=== PATIENT | female | born 2000 | race Caucasian/White ===

== ENCOUNTER 2018-08-03 12:07 | Emergency (ER) | payer OTHER ==
[2018-08-03] MEDS ORDERED: NS 1,000 ML IV ONE (12:20)
--- NOTE | 2018-08-03 12:21 | EDPHY ---
H & P Time Seen by Provider: 08/03/18 12:20 HPI/ROS: Chief complaint. Syncope HPI. Patient is to 17-year-old female here by ambulance after having 2 syncopal episodes today. She has been sick since yesterday. This morning she was meeting friends for breakfast and was getting lightheaded and dizzy and somewhat thirsty. She got up to go get a drink and had a passing out episode. She tried to get up and had another passing out episode. She did strike her elbow but not did not hit her head. No neck pain. She did not have chest discomfort or trouble breathing. No abdominal pain. She has had chills and fever since yesterday. She has sore throat. History of strep and it feels the same. No known exposures. ROS 10 systems were reviewed and negative with the exception of the elements mentioned in the history of present illness Past Medical/Surgical History: Healthy Social History: Single, nonsmoker, no alcohol Smoking Status: Never smoked Physical Exam: General Appearance: Alert well-developed female mild distress vital signs are stable Eyes: Pupils equal and round no pallor or injection. ENT, tympanic membranes are normal. Pharynx injected with exudate. Mucous membranes moist Respiratory: There are no retractions, lungs are clear to auscultation. Cardiovascular: Regular rate and rhythm. Gastrointestinal: Abdomen is soft and nontender, no masses, bowel sounds normal. Neurological: Awake and alert, sensory and motor exams grossly normal. Skin: Warm and dry, no rashes. Musculoskeletal: Neck is supple nontender. Extremities symmetrical, full range of motion. Psychiatric: Patient is oriented X 3, there is no agitation. Constitutional: Initial Vital Signs Temperature (C) 36.4 C 08/03/18 12:07 Heart Rate 79 08/03/18 12:07 Respiratory Rate 16 08/03/18 12:07 Blood Pressure 115/69 08/03/18 12:07 O2 Sat (%) 100 08/03/18 12:07 O2 Delivery Mode Room Air Allergies/Adverse Reactions: No Known Allergies Allergy (Unverified 08/03/18 12:13) Home Medications: Medication Instructions Recorded Penicillin V Potassium [Penicillin 500 mg PO BID #14 tab 08/03/18 VK] Sertraline HCl 08/03/18 Zoloft 50mg (*) 08/03/18 Medical Decision Making - Diagnostics EKG Interpretation: EKG interpreted by me shows normal sinus rhythm short AR interval at 1:02 a.m.. Normal axis. No significant ST elevation or depression. No arrhythmia. Rate 73 Procedures: IV normal saline monitor Strep screen which is negative Decadron orally ED Course/Re-evaluation: Re-evaluation at 1:40 p.m. Patient is stable. She feels much better. She and I discussed laboratory an EKG evaluation. We discussed treatment plan including recommendation for follow-up with Cardiology because of the short AR interval and syncope. She expresses understanding and agreement Differential Diagnosis: Syncope likely due to dehydration and illness. Patient has swollen tonsils with pus. Negative strep and mono. This appears to be still infectious disease and bacterial versus viral illness. Short AR interval and referral to Cardiology. - Data Points Laboratory Results: Laboratory Results 08/03/18 12:23 08/03/18 12:23 08/03/18 08/03/18 08/03/18 Unknown 12:38 12:27 WBC RBC Hgb Hct MCV MCH MCHC RDW Plt Count MPV Neut % (Auto) Lymph % (Auto) Pratt % (Auto) Eos % (Auto) Baso % (Auto) Nucleat RBC Rel Count Absolute Neuts (auto) Absolute Lymphs (auto) Absolute Monos (auto) Absolute Eos (auto) Absolute Basos (auto) Absolute Nucleated RBC Immature Gran % Immature Gran # Sodium Potassium Chloride Carbon Dioxide Anion Gap BUN Creatinine Estimated GFR Glucose Calcium POC Troponin I 0.02 ng/mL ng/mL (0.00-0.08) Monoscreen Group A Strep Screen NEGATIVE (NEGATIVE) Group A Strep DNA Pending 08/03/18 08/03/18 08/03/18 12:23 12:23 12:20 WBC 18.11 10^3/uL H 10^3/uL (3.80-9.50) RBC 4.16 10^6/uL L 10^6/uL (4.18-5.33) Hgb 13.1 g/dL g/dL (12.6-16.3) Hct 39.6 % % (38.0-47.0) MCV 95.2 fL fL (81.5-99.8) MCH 31.5 pg pg (27.9-34.1) MCHC 33.1 g/dL g/dL (32.4-36.7) RDW 13.3 % % (11.5-15.2) Plt Count 298 10^3/uL 10^3/uL (150-400) MPV 11.0 fL fL (8.7-11.7) Neut % (Auto) 72.4 % % (39.3-74.2) Lymph % (Auto) 19.7 % % (15.0-45.0) Pratt % (Auto) 7.0 % % (4.5-13.0) Eos % (Auto) 0.1 % L % (0.6-7.6) Baso % (Auto) 0.4 % % (0.3-1.7) Nucleat RBC Rel Count 0.0 % % (0.0-0.2) Absolute Neuts (auto) 13.11 10^3/uL H 10^3/uL (1.70-6.50) Absolute Lymphs (auto) 3.56 10^3/uL H 10^3/uL (1.00-3.00) Absolute Monos (auto) 1.27 10^3/uL H 10^3/uL (0.30-0.80) Absolute Eos (auto) 0.02 10^3/uL L 10^3/uL (0.03-0.40) Absolute Basos (auto) 0.07 10^3/uL 10^3/uL (0.02-0.10) Absolute Nucleated RBC 0.00 10^3/uL 10^3/uL (0-0.01) Immature Gran % 0.4 % % (0.0-1.1) Immature Gran # 0.08 10^3/uL 10^3/uL (0.00-0.10) Sodium 137 mEq/L mEq/L (135-145) Potassium 4.0 mEq/L mEq/L (3.3-5.0) Chloride 103 mEq/L mEq/L (97-110) Carbon Dioxide 22 mEq/l mEq/l (22-31) Anion Gap 12 mEq/L mEq/L (6-14) BUN 13 mg/dL mg/dL (7-23) Creatinine 0.8 mg/dL mg/dL (0.6-1.0) Estimated GFR > 60 Glucose 127 mg/dL H mg/dL (70-100) Calcium 9.3 mg/dL mg/dL (8.5-10.4) POC Troponin I Monoscreen NEGATIVE (NEGATIVE) Group A Strep Screen Group A Strep DNA Medications Given: Discontinued Medications Dexamethasone (Decadron) 8 mg PO EDNOW ONE Stop: 08/03/18 13:06 Last Admin: 08/03/18 13:41 Dose: 8 mg Sodium Chloride (Ns) 1,000 mls @ 0 mls/hr IV EDNOW ONE; Wide Open PRN Reason: Protocol Stop: 08/03/18 12:21 Last Admin: 08/03/18 12:52 Dose: 1,000 mls Point of Care Test Results: Chemistry 08/03/18 12:27 POC Troponin I 0.02 ng/mL ng/mL (0.00-0.08) Departure - Departure Disposition: Home, Routine, Self-Care Clinical Impression: Syncope Qualifiers: Syncope type: unspecified Qualified Code(s): R55 - Syncope and collapse Acute pharyngitis Qualifiers: Pharyngitis/tonsillitis etiology: unspecified etiology Qualified Code(s): J02.9 - Acute pharyngitis, unspecified Condition: Good Instructions: Syncope (ED), Pharyngitis (ED) Additional Instructions: Frequent small sips fluids and stay hydrated. Consider popsicles and smoothies. Frequently a personal have fever with illness in the afternoon evening.. Use Tylenol 650 mg every 4-6 hours, ibuprofen 600 mg every 6 hr as needed for fever. Penicillin as antibiotic Return for another passing out episode Follow up with Cardiology for evaluation of slightly abnormal EKG Referrals: Patient,NotPresent [Unknown] - As per Instructions Be Xiong MD [Medical Doctor] - 2-3 days, call for appt. Stand Alone Forms: School Excuse Prescriptions: Penicillin V Potassium [Penicillin VK] 500 mg PO BID #14 tab
[2018-08-03 12:33] LABS: PLATELET COUNT 298 10^3/uL (150-400)
[2018-08-03] MEDS ORDERED: DEXAMETHASONE 4 MG TAB PO ONE (13:05)
[2018-08-03 14:06] VITALS: BP 112/65
--- NOTE | 2018-08-03 14:44 | CPEKG ---
Test Reason : OPEN Blood Pressure : / mmHG Vent. Rate : 073 BPM Atrial Rate : 074 BPM P-R Int : 102 ms QRS Dur : 087 ms QT Int : 371 ms P-R-T Axes : 071 077 057 degrees QTc Int : 409 ms Sinus rhythm Short NM interval Probable left atrial enlargement Confirmed by Kenneth Bello ([id number]) on 08/03/2018 2:44:04 PM Referred By: Confirmed By:Kenneth Bello
== END 2018-08-03 14:04 | disposition home or self-care (01) ==
DX: R55 Syncope and collapse (principal); J02.9 Acute pharyngitis, unspecified; E86.9 Volume depletion, unspecified
CPT/HCPCS: 84484-ER